=== PATIENT | female | born 1960 | race Caucasian/White ===

== ENCOUNTER 2025-09-06 19:49 | Emergency (ER) | payer MEDICAID ==
[~2025-09-06] VITALS: Ht 170.2 cm; Wt 81.6 kg
[2025-09-06 23:20] LABS: PLATELET COUNT (AUTO) 383 K/uL (150-450); RED BLOOD CELL COUNT(AUTO) 4.55 MIL/uL (4.0-5.2); RED CELL DISTRIBUTION WIDTH 14.7 % (11.5-15.0); WHITE BLOOD COUNT (AUTO) 8.1 K/uL (4.3-11.0)
[2025-09-06 23:30] LABS: CALCIUM, SERUM 8.6 mg/dL (8.5-10.1); CREATININE 0.7 mg/dL (0.6-1.3); SODIUM SERUM 143.0 mmol/L (136-145); UREA NITROGEN, BLOOD 9.0 mg/dL (7-18)
[2025-09-07 00:09] VITALS: BP 164/83; TEMP 98.2; O2SAT 98
== END 2025-09-07 00:09 | disposition home or self-care (01) ==
LOC: ER 20:02
DX: K62.5 Hemorrhage of anus and rectum (principal); Z87.19 Personal history of other diseases of the digestive system
CPT/HCPCS: 36415; 80048-TC; 85025-TC